=== PATIENT | male | born 1995 | race Caucasian/White ===

== ENCOUNTER 2018-09-22 18:19 | Emergency (ER) | payer OTHER ==
[2018-09-22] MEDS ORDERED: HYDROmorphone 1 MG/ML Syringe IVPUSH ONE ×2 (18:40→19:22)
[2018-09-22] MEDS ORDERED: Ondansetron 4 MG/2 ML SDV IVPUSH ONE (18:41)
[2018-09-22 18:53] LABS: ANION GAP 13.2 mmol/L (5-15); CHLORIDE,CL 103 mmol/L (98-115); SODIUM,NA 138 mmol/L (136-145)
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
[2018-09-22] MEDS: HYDROmorphone 2 MG/ML SDV ONE ×2 (19:03→19:32)
[2018-09-22] MEDS ORDERED: Sodium Chloride 0.9% 1,000 ML IV ONE (19:08)
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
[2018-09-22 20:40] LABS: BARBITURATE SCREEN,URINE NEGATIVE (NEGATIVE); BENZODIAZEPINES SCREEN,URINE NEGATIVE (NEGATIVE)
[2018-09-22 20:41] LABS: TCA SCREEN,URINE NEGATIVE (NEGATIVE); THC SCREEN,URINE 50 NG/ML POSITIVE (NEGATIVE)
== END 2018-09-22 20:45 | disposition home or self-care (01) ==
LOC: KA.ED 18:19
DX: S16.1XXA Strain of muscle, fascia and tendon at neck level, initial encounter (principal); S40.211A Abrasion of right shoulder, initial encounter; R07.81 Pleurodynia; M25.551 Pain in right hip; R10.31 Right lower quadrant pain; R10.2 Pelvic and perineal pain; V48.5XXA Car driver injured in noncollision transport accident in traffic accident, initial encounter; Y92.410 Unspecified street and highway as the place of occurrence of the external cause
CPT/HCPCS: 70450; 71250; 72125; 74176; 80048; 80305; 85025; 96361; 96374; 96375; 99285; J1170; J2360; J2405; J7030